=== PATIENT | male | born 1950 | race Caucasian/White ===

== ENCOUNTER 2020-04-29 17:41 | Emergency (ER) | payer MEDICARE, BC ==
[~2020-04-29] VITALS: Ht 175.2 cm; Wt 82.1 kg
[2020-04-29] MEDS ORDERED: KEFLEX500 M1 PO (18:20)
[2020-04-29] MEDS ORDERED: ANTIBIOTIC28.4 GM T (18:20)
== END 2020-04-29 19:16 | disposition home or self-care (01) ==
LOC: ED 17:41
DX: S81.812A Laceration without foreign body, left lower leg, initial encounter (principal); Z23 Encounter for immunization; W26.9XXA Contact with unspecified sharp object(s), initial encounter; Y93.89 Activity, other specified; Y92.89 Other specified places as the place of occurrence of the external cause; Y99.8 Other external cause status